=== PATIENT | female | born 2000 | race Caucasian/White ===

== ENCOUNTER 2024-01-26 08:22 | Outpatient (CLI) | payer BC | END 2024-01-26 08:23 | disposition home or self-care (01) | LOC: CSHSLEEP 08:22 | PROVIDERS: ATTEND Internal Medicine Critical Care Medicine | DX: G47.419 Narcolepsy without cataplexy (principal); R53.83 Other fatigue; G47.11 Idiopathic hypersomnia with long sleep time | CPT/HCPCS: 95810 ==

== ENCOUNTER 2024-01-27 08:32 | Outpatient (CLI) | payer BC | END 2024-01-27 08:33 | disposition home or self-care (01) | LOC: CSHSLEEP 08:32 | PROVIDERS: ATTEND Internal Medicine Critical Care Medicine | DX: G47.419 Narcolepsy without cataplexy (principal); R53.83 Other fatigue; G47.11 Idiopathic hypersomnia with long sleep time | CPT/HCPCS: 95805 ==